=== PATIENT | male | born 1930 | race Caucasian/White ===

== ENCOUNTER 2018-07-24 11:15 | Emergency (ER) | payer MEDICARE ==
[2018-07-24 12:13] LABS: BILIRUBIN,URINE NEGATIVE (NEGATIVE); GLUCOSE, URINE (UA) NEGATIVE (NEGATIVE); KETONES,URINE (UA) NEGATIVE (NEGATIVE); LEUKOCYTE ESTERASE, URINE NEGATIVE (NEGATIVE); NITRITE,URINE NEGATIVE (NEGATIVE); OCCULT BLOOD,URINE NEGATIVE (NEGATIVE); PROTEIN,URINE NEGATIVE (NEGATIVE); UROBILINOGEN,URINE 0.2 (NORMAL) E.U./dL (NORMAL)
[2018-07-24 12:14] LABS: CLARITY,URINE CLEAR (CLEAR)
--- NOTE | 2018-07-24 12:25 | ED Physician Documentation ---
PD HPI Fall - Stated complaint Stated Complaint: GLF - History obtained from History obtained from: Patient, EMS - History of Present Illness Mechanism of injury: Tripped Fall distance: Standing position Where injury occurred: Street Timing - onset: Today Injury(ies) location: Face, Right Upper Extremity, Left Lower Extremity Quality of pain: Pain Associated symptoms: AMS. 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 He has scraped his knee and his hand and he denies any significant pain. He is brought to the hospital here today with a question of confusion. The patient relates that he has a daughter who has his dog in [place] and that he usually lives alone. He reports that he was simply coming here to visit. He does not know his medications and he does have some swelling to his right leg thinks he is on some medicine for that not sure what it is. Review of Systems Constitutional: denies: Fever Eyes: denies: Decreased vision Ears: denies: Ear pain Nose: denies: Rhinorrhea / runny nose, Congestion Throat: denies: Sore throat Cardiac: denies: Chest pain / pressure, Palpitations Respiratory: denies: Dyspnea, Cough GI: denies: Abdominal Pain, Nausea, Vomiting : denies: Dysuria, Frequency Skin: denies: Rash Musculoskeletal: reports: Extremity swelling. denies: Neck pain, Back pain, Extremity pain Neurologic: denies: Generalized weakness, Focal weakness, Numbness PD PAST MEDICAL HISTORY - Present Medications Home Medications: Ambulatory Orders Medication Instructions Recorded Confirmed Atorvastatin [Lipitor] 10 mg PO DAILY 07/24/18 Triamterene/Hydrochlorothiazid 1 each PO DAILY 07/24/18 [Triamterene-Hctz 37.5-25 mg Cp] - Allergies Allergies/Adverse Reactions: Allergies Allergy/AdvReac Type Severity Reaction Status Date / Time No Known Drug Allergies Allergy Verified 07/24/18 11:38 PD ED PE NORMAL - Vitals Vital signs reviewed: Yes (hypertensive ) - General General: Alert and oriented X 3, No acute distress, Well developed/nourished - HEENT HEENT: PERRL, EOMI, Other (There is dried blood to the left nares) - Neck Neck: Supple, no meningeal sign, No bony TTP - Cardiac Cardiac: RRR, No murmur - Respiratory Respiratory: No respiratory distress, Clear bilaterally - Abdomen Abdomen: Soft, Non tender - Back Back: No CVA TTP, No spinal TTP - Derm Derm: Normal color, Warm and dry, No rash - Extremities Extremities: Other (There is an abrasion to the dorsum of the right hand with full function of the hand. There is an abrasion to the left knee over the patella and the knee joint is stable to testing. Distal n/v is intact. ) - Neuro Neuro: Alert and oriented X 3, research & insights executive 2-12 intact, No motor deficit, No sensory deficit, Normal speech Eye Opening: Spontaneous Motor: Obeys Commands Verbal: Oriented GCS Score: 15 - Psych Psych: Normal mood, Normal affect Results - Vitals Vitals: Vital Signs - 24 hr 07/24/18 11:14 Temperature 36.6 C Heart Rate 53 L Respiratory 20 Rate Blood Pressure 172/109 H O2 Saturation 96 Oxygen O2 Source Room air - Labs Labs: Laboratory Tests 07/24/18 12:00 Urine Color YELLOW Urine Clarity CLEAR Urine pH 7.0 Ur Specific [place] 1.020 Urine Protein NEGATIVE Urine Glucose (UA) NEGATIVE Urine Ketones NEGATIVE Urine Occult Blood NEGATIVE Urine Nitrite NEGATIVE Urine Bilirubin NEGATIVE Urine Urobilinogen 0.2 (NORMAL) Ur Leukocyte Esterase NEGATIVE Ur Microscopic Review NOT INDICATED Urine Culture Comments NOT INDICATED PD MEDICAL DECISION MAKING - ED course Complexity details: reviewed results, re-evaluated patient, considered differential, d/w patient, d/w family ED course: 88-year-old [place] by multiple people. 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 His family is able to coroborate all of the information the patient is provided and they will take him home. Departure - Departure Disposition: 01 Home, Self Care Clinical Impression: Abrasions of multiple sites Fall Qualifiers: Encounter type: initial encounter Qualified Code(s): W19.XXXA - Unspecified fall, initial encounter Condition: Stable Instructions: ED Abrasion Follow-Up: Your, doctor [Other]
[2018-07-24 13:17] VITALS: BP 172/81
== END 2018-07-24 13:17 | disposition home or self-care (01) ==
LOC: ED 11:15
DX: S60.511A Abrasion of right hand, initial encounter (principal); S80.212A Abrasion, left knee, initial encounter; W01.0XXA Fall on same level from slipping, tripping and stumbling without subsequent striking against object, initial encounter; Y92.410 Unspecified street and highway as the place of occurrence of the external cause; R41.0 Disorientation, unspecified
CPT/HCPCS: 81001; 81003; 87086; 99282; 99283